=== PATIENT | female | born 1965 | race Hispanic/Latino ===

== ENCOUNTER 2018-02-08 08:20 | Day surgery (SDC) | payer OTHER ==
[2018-02-03 16:07] VITALS: BP 133/71
[2018-02-03 16:11] LABS: EOSINOPHILS % (AUTO) 2.4 % (0.0-8.0); HEMATOCRIT 38.9 % (36-48); LYMPHOCYTES % (AUTO) 42.7 % (21.0-51.0); MEAN CORPUSCULAR HEMOGLOBIN 29.1 pg (27.0-33.0); MEAN CORPUSCULAR HGB CONC 33.8 g/dL (32.0-36.0); MEAN CORPUSCULAR VOLUME 86.1 fL (79-99); MONOCYTES % (AUTO) 4.9 % (3.0-13.0); PLATELET COUNT (AUTO) 338 K/uL (130-400); RED BLOOD CELL COUNT(AUTO) 4.52 MIL/uL (4.00-5.50); RED CELL DISTRIBUTION WIDTH 13.8 % (11.0-15.5); WHITE BLOOD COUNT (AUTO) 6.5 K/uL (4.8-10.8)
[2018-02-03 16:40] LABS: CREATININE 0.6 mg/dL (0.5-1.5); POTASSIUM 4.2 mmol/L (3.5-5.1)
[2018-02-08] VITALS (15 sets, daily range): BP systolic 103–141; BP diastolic 62–77
[~2018-02-08] VITALS: Ht 154.9 cm; Wt 83.5 kg
[~2018-02-08 08:20] MED LIST: ATOR20TA PO; LACTATED RINGERS 1000ML 1,000 ML IV SCH; LISI2.5T2 PO; METF-445 PO
[2018-02-08] MEDS ORDERED: SODIUM CHLORIDE 0.9% 1000ML 1,000 ML IV ONE (08:49)
[2018-02-08] MEDS ORDERED: LIDOCAINE PF 2% 5ML ABBOJECT ONE (10:15)
[2018-02-08] MEDS ORDERED: DEXAMETHASONE SOD PHOSPHATE 10MG/ML 1ML VIAL ONE (10:15)
[2018-02-08] MEDS ORDERED: MIDAZOLAM HCL 1 MG/ML 2ML VIAL ONE (10:15)
[2018-02-08] MEDS ORDERED: ONDANSETRON HCL 4 MG/2 ML VIAL ONE (10:16)
[2018-02-08] MEDS ORDERED: ROCURONIUM 10MG/1ML SYR 10 MG/ML ML ONE (10:16)
[2018-02-08] MEDS ORDERED: GLYCOPYRROLATE 1 MG/5 ML SYRINGE ONE (10:16)
[2018-02-08] MEDS ORDERED: FENTANYL CITRATE PF 50 MCG/1 ML 2ML VIAL ONE (10:16)
[2018-02-08] MEDS ORDERED: NEOSTIGMINE 5MG/5ML SYR IV ONE (10:16)
[2018-02-08] MEDS ORDERED: PROPOFOL 10 MG/ML 20ML VIAL IV ONE (10:20)
[2018-02-08] MEDS ORDERED: EPHEDRINE SULFATE 50 MG/ML AMPULE ONE (10:36)
== END 2018-02-08 13:00 | disposition home or self-care (01) ==
LOC: DAH 08:20
PROVIDERS: ATTEND Specialist
DX: N95.0 Postmenopausal bleeding (principal); E11.9 Type 2 diabetes mellitus without complications; Z79.84 Long term (current) use of oral hypoglycemic drugs; Z79.899 Other long term (current) drug therapy
CPT/HCPCS: 36415 ×2; 58120; 80048; 82948 ×2; 85025; 86850 ×2; 86900 ×2; 86901 ×2; 88305; A4351; A4510; A4600; J1100; J2001; J2250; J2405; J2704; J2710; J3010; J3490 ×2; J7030